=== PATIENT | female | born 1995 | race Caucasian/White ===

== ENCOUNTER 2016-12-05 00:57 | Emergency (ER) | payer BC ==
[2016-12-05] MEDS ORDERED: Ondansetron INJ* 2 MG/ML VIAL IV ONE (01:08)
[2016-12-05] MEDS ORDERED: NS 0.9% 1000 ML* 1,000 ML IV ONE (01:09)
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
[2016-12-05 01:51] LABS: Hematocrit 31 % (35-47); Hemoglobin 9.4 g/dl (12.0-16.0); Mean Corpuscular HGB Conc 30 g/dl (31-36); Mean Corpuscular Hemoglobin 21 pg (27-31); Mean Corpuscular Volume 68 fL (80-97); Mean Platelet Volume 7 um3 (7.4-10.4); Red Blood Count 4.53 10^6/ul (4.0-5.4); Red Cell Distribution Width 20 % (10.5-15); White Blood Count 6.4 10^3/ul (3.5-10.8)
[2016-12-05 01:56] LABS: Add Diff/Slide Review? Slide Review Added; Comments Flag Yes
[2016-12-05 02:02] LABS: Albumin 4.1 g/dL (3.2-5.2); BUN/Creatinine Ratio 25.4 (8-20); Calcium 8.8 mg/dL (8.6-10.3); EGFR African American 154.9 (>60); EGFR Non-African American 120.5 (>60); Potassium 3.2 mmol/L (3.5-5.0); Total Bilirubin 0.2 mg/dL (0.2-1.0); Total Protein 7.1 g/dL (6.4-8.9)
[2016-12-05] MEDS ORDERED: Potassium Chlor TAB* 20 MEQ TAB.ER PO ONE (02:28)
[2016-12-05 02:31] LABS: Add Path Review? YES; Hypochromasia 2+; Microcytosis 1+
--- NOTE | 2016-12-05 05:35 | ED ---
Jax Ayers Adam, scribed for Jace Solorzano on 12/05/16 at 0534 . Progress - Progress Note Progress Note: Patient is able to walk around and ready to go home. She will be discharged. Course/Dx - Diagnoses Provider Diagnoses: Alcohol intoxication The documentation as recorded by the Jax arredondo Adam accurately reflects the service I personally performed and the decisions made by Rashad bernardo Emmanuel.
[2016-12-05 05:48] VITALS: BP 118/64
== END 2016-12-05 05:47 ==
LOC: ED 00:57
DX: F10.129 Alcohol abuse with intoxication, unspecified (principal)
CPT/HCPCS: 36415; 80053; 80320; 85025; 85060; 96374; 99282; A9270-GY; G0480